=== PATIENT | male | born 1950 | race Asian ===

== ENCOUNTER 2022-12-06 12:40 | Outpatient (CLI) | payer MEDICARE, OTHER ==
[2022-12-06 13:19] LABS: ALKALINE PHOSPHATASE 63 IU/L (42-121); ALT ALANINE AMINOTRANSFERASE 22 IU/L (10-60); AST ASPARTATE AMINOTRANSFERASE 18 IU/L (10-42); BILIRUBIN,DIRECT < 0.10 mg/dL (0.03-0.18); BILIRUBIN,TOTAL 0.4 mg/dL (0.2-1.0); TOTAL PROTEIN 6.9 g/dL (6.4-8.9)
[2022-12-06 13:31] LABS: THYROID STIMULATING HORMONE 1.56 uIU/mL (0.34-5.60)
[2022-12-06 15:31] LABS: RHEUMATOID FACTOR NEGATIVE (Negative)
[2022-12-07 03:10] LABS: HIV SCREEN 4TH GENERATION Non Reactive (Non Reactive)
[2022-12-08 14:08] LABS: CYCLIC CITRULLINATED PEP IGG/A 2 units (0-19)
[2022-12-08 17:08] LABS: ANTINUCLEAR ANTIBODIES IFA Negative (.)
== END 2022-12-06 12:41 | disposition home or self-care (01) ==
LOC: LAB 12:40
PROVIDERS: ATTEND Family Medicine
DX: M25.50 Pain in unspecified joint (principal); Z82.61 Family history of arthritis; R23.2 Flushing; N40.1 Benign prostatic hyperplasia with lower urinary tract symptoms
CPT/HCPCS: 36415; 80076; 84443; 86038; 86200; 86430; 86480; G0475; 81599; 87389

== ENCOUNTER 2023-02-24 10:32 | Outpatient (CLI) | payer MEDICARE, OTHER | END 2023-02-24 10:33 | disposition home or self-care (01) | LOC: LAB 10:32 | PROVIDERS: ATTEND Specialist | DX: Z08 Encounter for follow-up examination after completed treatment for malignant neoplasm (principal); Z85.46 Personal history of malignant neoplasm of prostate | CPT/HCPCS: 36415; 84153 ==

== ENCOUNTER 2023-03-23 09:03 | Outpatient (CLI) | payer MEDICARE, OTHER ==
--- NOTE | 2023-03-23 10:49 | DEXA Report ---
PROCEDURE: Dexa Spine and/or Hip INDICATIONS: OSTEOPOROSIS TECHNIQUE: Dual energy x-ray absorptiometry (DXA) was performed on a [employer] System. Regions measur ed are the AP Spine, femoral neck, and if needed forearm. COMPARISON: None. FINDINGS: Lumbar Spine: Bone Mineral Density 1.019 g/cm/cm,T score -1.7. Osteopenia Left Femoral Neck: Bone Mineral Density 0.741 g/cm/cm, T score -2.5. Osteoporosis Left Hip: Bone Mineral Density 0.774 g/cm/cm,T score -2.3. Osteopenia (T score greater or equal to -1.0: NORMAL) (T score from -1.1 to -2.4: OSTEOPENIA) (T score less than or equal to -2.5 to: OSTEOPOROSIS) Impression: By WHO criteria, this patient has osteoporosis. Patients with diagnosis of osteoporosis or osteopenia should have regular bone mineral density assess ment. For those eligible for Medicare, routine testing is allowed once every 2 years. Testing frequ ency can be increased for patients who have rapidly progressing disease or for those who are receivin g medical therapy to restore bone mass. Reviewed by: Abram Ellis MD on 03/23/2023 10:47 AM PST Approved by: Abram Ellis MD on 03/23/2023 10:47 AM PST Station ID: [id number]
== END 2023-03-23 09:04 | disposition home or self-care (01) ==
LOC: DI 09:03
PROVIDERS: ATTEND Family Medicine
DX: M81.0 Age-related osteoporosis without current pathological fracture (principal)

== ENCOUNTER 2023-10-19 09:58 | Outpatient (CLI) | payer MEDICARE, OTHER ==
[2023-10-19 10:43] LABS: CREATININE 0.8 mg/dL (0.6-1.3)
[2023-10-19] MEDS ORDERED: iohexoL-300 100 ML VIAL ONE (10:48)
[2023-10-19] MEDS: iohexoL-300 100 ML VIAL IVP ONE (11:16)
--- NOTE | 2023-10-19 16:44 | CT Report ---
PROCEDURE: Maxillofacial W INDICATIONS: JAW PAIN CONTRAST: 100 ml omni 300 TECHNIQUE: After the administration of intravenous contrast, 3.0 mm axial sections acquired from the mid-neck to the frontal sinuses, with coronal reformatting. For radiation dose reduction, the following was use d: automated exposure control, adjustment of mA and/or kV according to patient size. COMPARISON: None. FINDINGS: Image quality: Excellent. Soft tissues: No edema, masses, or fluid collections. No pathologically enlarged lymph nodes. The parotid and submandibular glands bilaterally show no abnormal enhancement or ductal dilatation. Sever al lymph nodes present in these areas show homogeneous enhancement without central necrosis. The larg est node seen is at the posterior border of the right submandibular gland measuring up to 2.4 cm cran iocaudad but only 1.1 cm in maximal axial dimension. Vascular: Visualized vascular structures appear patent throughout. Bony vascular foramina and canal s appear normal. Bones: Facial bones appear intact, without fractures, erosions, or destruction. Visualized portions of the skull base and auditory canals also appear normal. Sinuses: Paranasal sinuses are aerated without fluid levels, mucosal thickening, or mucoceles. Mast oid air cells are aerated. IMPRESSION: Etiology of reported jaw pain is not identified. Laterality of pain is not stated. Normal-appearing p arotid and submandibular glands bilaterally. No inflammatory or neoplastic process is found. Single mildly prominent lymph node adjacent to the po sterior border of the right submandibular gland is noted, nonspecific in appearance. Reviewed by: Fadi Talbert MD on 10/19/2023 4:43 PM PDT Approved by: Fadi Talbert MD on 10/19/2023 4:43 PM PDT Station ID: [id number]
== END 2023-10-19 09:59 | disposition home or self-care (01) ==
LOC: LAB 09:58
PROVIDERS: ATTEND Family Medicine
DX: R68.84 Jaw pain (principal)
CPT/HCPCS: 36415; 70487; 82565; Q9967